=== PATIENT | female | born 1960 | race Caucasian/White ===

== ENCOUNTER → 2016-05-04 | Outpatient (CLI) | payer OTHER ==
--- NOTE | 2016-05-04 19:45 | DX ---
Left Knee, Three Views Indication: M25.562. LEFT KNEE PAIN. EVAL FOR ARTHRITIS. Technique: AP, lateral, and Merchant views. Comparison: None. Findings: The normally mineralized bones are anatomically aligned. Joint spaces are well preserved. Small marginal osteophytes emanate off the medial tibiofemoral joint line. No marginal erosions. No patellar tilt or lateral translation. An intramedullary helen in the tibial diaphysis is well seate d. No effusion. An old proximal fibular fracture is healed, with minimal deformity. 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
== END ==
LOC: FIMAGING 11:39
PROVIDERS: ATTEND Family Medicine
DX: M25.562 Pain in left knee (principal)

== ENCOUNTER → 2016-06-28 | Outpatient (CLI) | payer OTHER | LOC: FIMAGING 09:13 | PROVIDERS: ATTEND Family Medicine | DX: R10.13 Epigastric pain (principal); R07.2 Precordial pain; K21.9 Gastro-esophageal reflux disease without esophagitis ==

== ENCOUNTER → 2016-07-25 | Outpatient (CLI) | payer OTHER | LOC: BMCIMAGING 07:49 | PROVIDERS: ATTEND Physician Assistant | DX: R10.11 Right upper quadrant pain (principal); I70.0 Atherosclerosis of aorta ==

== ENCOUNTER → 2016-09-20 | Outpatient (CLI) | payer OTHER | LOC: FIMAGING 10:59 | PROVIDERS: ATTEND Family Medicine | DX: Z12.31 Encounter for screening mammogram for malignant neoplasm of breast (principal) | CPT/HCPCS: G0202 ==

== ENCOUNTER 2017-01-15 14:44 | Emergency (ER) | payer OTHER ==
[2017-01-15 14:49] VITALS: BP 116/66; PULSE 66; RESP 18; TEMP 97.5; O2SAT 94
== END 2017-01-15 15:30 | disposition left against medical advice (07) ==
DX: Z53.21 Procedure and treatment not carried out due to patient leaving prior to being seen by health care provider (principal)

== ENCOUNTER → 2017-10-08 | Outpatient (CLI) | payer OTHER | LOC: FIMAGING 14:08 | PROVIDERS: ATTEND Family Medicine | DX: Z12.31 Encounter for screening mammogram for malignant neoplasm of breast (principal) ==